=== PATIENT | female | born 1955 | race Caucasian/White ===

== ENCOUNTER 2017-10-05 11:41 | Inpatient (IN) | payer MEDICAID ==
[~2017-10-05] VITALS: Ht 147.3 cm; Wt 53.6 kg
[2017-10-05 13:19] LABS: BASOPHIL % 0.9 % (0-2); CALCIUM 8.2 mg/dL (8.5-10.1); CHLORIDE SERUM 106 mmol/L (98-107); CREATININE SERUM 0.7 mg/dL (0.6-1.0); GFR1 > 60 mL/min; GLUCOSE SERUM 123 mg/dL (74-106); PLATELET COUNT 280 x10^3mcL (130-400); POTASSIUM SERUM 3.3 mmol/L (3.5-5.1); SODIUM SERUM 141 mmol/L (136-145)
[2017-10-05 13:21] LABS: ALBUMIN 3.3 g/dL (3.4-5.0); ALKALINE PHOSPHATASE 76 U/L (46-116); ALT/SGPT 14 U/L (14-59); AST/SGOT 17 U/L (15-37); BILIRUBIN TOTAL 0.24 mg/dL (0.20-1.00); TOTAL PROTEIN, SERUM 6.7 g/dL (6.4-8.2)
[2017-10-05 14:09] LABS: rbc morphology (normal/abnorm) ABNORMAL (NORMAL)
[2017-10-05 15:34] LABS: CHOLESTEROL/HDL RATIO 3.8; MAGNESIUM 2.1 mg/dL (1.8-2.4); PHOSPHOROUS 3.8 mg/dL (2.5-4.9)
[2017-10-05 15:35] LABS: T3 TOTAL 1.09 ng/mL
[2017-10-05 15:38] VITALS: BP 127/56
[2017-10-05 15:46] VITALS: BP 127/56
[2017-10-05 15:51] VITALS: Ht 147.3 cm; Wt 53.6 kg
[2017-10-05 15:59] LABS: RED BLOOD CELLS 1.85 M/mm3 (4.10-5.10)
[2017-10-05 16:21] LABS: FREE T4 1.04 ng/dL (0.76-1.46); FREE THYROXINE INDEX 2.5 ug/dL (1.4-4.5); T4(THYROXINE) 7.1 ug/dL (4.7-13.3)
[2017-10-05 18:12] LABS: microscopic required? NO
[2017-10-05 18:16] LABS: UA SPECIFIC GRAVITY 1.015 (1.005-1.035); urine erythrocyte NEGATIVE (NEGATIVE)
[2017-10-05 18:25] LABS: AMPHETAMINE QUAL UR NONE DETECTED (NEG <=1000)
[2017-10-05 21:59] VITALS: BP 139/76
[2017-10-05 22:24] LABS: BASOPHIL % 0.3 % (0-2); PLATELET COUNT 302 x10^3mcL (130-400); RED CELL DISTRIBUTION WIDTH 20.1 % (11.5-14.5)
[2017-10-06 05:23] VITALS: BP 114/63
[2017-10-06 06:58] LABS: CALCIUM 8.6 mg/dL (8.5-10.1); CARBON DIOXIDE 21.9 mmol/L (21-32); CHLORIDE SERUM 111 mmol/L (98-107); CREATININE SERUM 0.7 mg/dL (0.6-1.0); GFR1 > 60 mL/min; GLUCOSE SERUM 94 mg/dL (74-106); MAGNESIUM 2.2 mg/dL (1.8-2.4); PHOSPHOROUS 3.6 mg/dL (2.5-4.9); POTASSIUM SERUM 4.5 mmol/L (3.5-5.1); SODIUM SERUM 143 mmol/L (136-145)
[2017-10-06 07:23] LABS: PLATELET COUNT 256 x10^3mcL (130-400)
[2017-10-06 07:29] LABS: RED CELL DISTRIBUTION WIDTH 19.6 % (11.5-14.5)
[2017-10-06 09:52] LABS: ATYPICAL LYMPH 2 %; BAND NEUTROPHIL 0 % (0-10); BASOPHIL 0 % (0-2); MONOCYTE 4 % (0-7); SEGMENTED NEUTROPHILS 69 % (37-75)
[2017-10-06 09:56] LABS: PLATELET MORPHOLOGY PLATELETS NORMAL; rbc morphology (normal/abnorm) ABNORMAL (NORMAL)
[2017-10-06 11:00] VITALS: BP 135/79
[2017-10-06 13:04] VITALS: BP 105/66
[2017-10-06 17:01] VITALS: BP 111/63
[2017-10-06 21:47] VITALS: BP 106/70
[2017-10-07 05:25] VITALS: BP 105/61
[2017-10-07 06:25] LABS: CALCIUM 8.2 mg/dL (8.5-10.1); CARBON DIOXIDE 20.9 mmol/L (21-32); CHLORIDE SERUM 108 mmol/L (98-107); CREATININE SERUM 0.7 mg/dL (0.6-1.0); GFR1 > 60 mL/min; GLUCOSE SERUM 97 mg/dL (74-106); PHOSPHOROUS 4.5 mg/dL (2.5-4.9); POTASSIUM SERUM 3.9 mmol/L (3.5-5.1); SODIUM SERUM 141 mmol/L (136-145)
[2017-10-07 06:36] LABS: BASOPHIL % 0.2 % (0-2); PLATELET COUNT 268 x10^3mcL (130-400)
[2017-10-07 06:38] LABS: RED CELL DISTRIBUTION WIDTH 19.9 % (11.5-14.5)
[2017-10-07 06:46] LABS: rbc morphology (normal/abnorm) ABNORMAL (NORMAL)
[2017-10-07 10:25] VITALS: BP 96/61
[2017-10-07] MEDS ORDERED: COL100 PO (12:26)
[2017-10-07] MEDS ORDERED: FER300 PO (12:28)
[2017-10-07] MEDS ORDERED: VITC PO (12:28)
[2017-10-07] MEDS ORDERED: FOL1 PO (12:29)
[2017-10-07 13:03] VITALS: BP 96/61
== END 2017-10-07 14:45 | disposition home or self-care (01) | DRG 240 ==
LOC: ED 11:41 → DU 14:28
PROVIDERS: Emergency Medicine Emergency Medical Services; Family Medicine; Internal Medicine Gastroenterology
PROC: 30233N1 Transfusion of Nonautologous Red Blood Cells into Peripheral Vein, Percutaneous Approach (ICD-10-PCS; principal; 2017-10-05)
PROC: 0DB78ZX Excision of Stomach, Pylorus, Via Natural or Artificial Opening Endoscopic, Diagnostic (ICD-10-PCS; 2017-10-06 09:00)
PROC: 0DBN8ZX Excision of Sigmoid Colon, Via Natural or Artificial Opening Endoscopic, Diagnostic (ICD-10-PCS; 2017-10-06 09:00)
DX: C18.9 Malignant neoplasm of colon, unspecified (principal); E44.1 Mild protein-calorie malnutrition; E86.0 Dehydration; E87.8 Other disorders of electrolyte and fluid balance, not elsewhere classified; D62 Acute posthemorrhagic anemia; K92.2 Gastrointestinal hemorrhage, unspecified; E87.6 Hypokalemia; Z83.3 Family history of diabetes mellitus; Z80.3 Family history of malignant neoplasm of breast; Z68.24 Body mass index [BMI] 24.0-24.9, adult
CPT/HCPCS: 43235; 45378; 83880; 84439; C9113; J1200; J1610; J2250; J2310; J2916; J3010; J3480; J3490; J7030; J7040; P9016; Q0092; Q0163